=== PATIENT | female | born 1985 | race Caucasian/White ===

== ENCOUNTER → 2023-11-10 07:51 | Outpatient (REF) | payer OTHER, SELFPAY | LOC: RCS 07:51 | PROVIDERS: ATTENDING PHYSICIAN Nurse Practitioner | DX: R00.2 Palpitations (principal) | CPT/HCPCS: 93225; 93226 ==

== ENCOUNTER 2024-06-06 10:30 | Emergency (ER) | payer OTHER, SELFPAY ==
[2024-06-06 10:34] VITALS: BP 149/99
[2024-06-06 11:16] LABS: Urine Albumin Negative (Neg - Trace); Urine Bilirubin Negative (Negative); Urine Character Clear (Clear); Urine Color Yellow; Urine Glucose Negative (Negative); Urine Ketone Negative (Negative); Urine Leukocyte Negative (Negative); Urine Nitrite Negative (Negative); Urine Occult Blood 4+ (Negative); Urine Urobilinogen Negative (Neg - 1+); Urine pH 6.5 (5.0-9.0)
[2024-06-06 11:23] LABS: % Basophils 1.1 % (0-2); % Lymphocytes 38.6 % (20.5-51.1); % Monocytes 8.9 % (1.7-9.3); % Neutrophils 48.9 % (42.2-75.2); Absolute Basophils 0.1 10^3/uL (0-0.2); Absolute Eosinophils 0.1 10^3/uL (0-0.7); Absolute Monocytes 0.6 10^3/uL (0.1-0.6); Absolute Neutrophils 3.2 10^3/uL (1.4-6.5); Mean Corp Hgb Conc. 34.5 g/dL (33.0-37.0); Mean Corpuscular Hgb 29.6 pg (27.0-31.0); Mean Corpuscular Volume 85.6 fL (81.0-99.0); Mean Platelet Volume 10.8 fL (7.4-10.4); Nucleated Red Blood Cells % 0 %; Platelet Count 215 10^3/uL (130-400); Red Blood Cell Count 4.87 10^6/uL (4.20-5.40); Red Cell Dist. Width 12.8 % (11.5-14.5); White Blood Cell Count 6.6 10^3/uL (4.8-10.8)
--- NOTE | 2024-06-06 11:25 | ED.GENMED ---
History of Present Illness
General
Chief Complaint: Abdominal Pain
Time Seen by Provider: 06/06/24 11:10
History of Present Illness
History of Present Illness:
Patient is a 38-year-old woman G3, P1, history of nephrotic syndrome presenting to the emergency department pelvic cramping. Patient states that she started her period yesterday. Her cycle is regular every 29 days and last for 4 days. It is heavy
on the first day and then decreases. She does pass clots with it. She has been following with her [facility] ASS[facility]ANCE CONSULTANT. She states that yesterday she started her. However it was production repairer than normal. During the night progressed to severe cramping, back pain
and then this morning she passed a large clot. She states that the pelvic cramping and the clot is extremely unusual given the size. She has been trying to get . She is concerned that this could be an early miscarriage that she has had
to. At this time patient states that the cramping has mostly subsided and is slightly more intense than her period cramping. The bleeding is now her normal period. No fevers chills back pain currently. No urinary problems. No chest pain.
Past History
Past History
ED Past Medical History: Other (Nephrotic syndrome)
ED Past Surgical History: Other (teeth)
Patient has exhibited threatening behavior?: No
Social History
Tobacco: Non-smoker
Alcohol: None
Drug: None
Personal:
Living: with family
Employment: Employed
Phy Exam
Physical Exam
Physical Exam:
GENERAL: in no acute distress
HEENT: normocephalic, extraocular movements intact, moist oral mucosa
NECK: normal inspection
RESPIRATORY: no respiratory distress, clear to auscultation bilaterally
CARDIOVASCULAR: regular rate and rhythm
ABDOMEN/: soft, non-distended, non-tender to palpation, no rebound or guarding
EXTREMITIES: non-tender, no edema/swelling
NEUROLOGIC: awake and alert, moves all extremities
SKIN: warm
Course
Orders/Labs/Results
Orders:
Orders
06/06/24 10:48
IV Insert/Care/Rem.- Treatment PRN
06/06/24 10:49
Test Result ONCE
06/06/24 11:06
Complete Blood Count/With Diff Urgent
Comprehensive Metabolic Panel Urgent
HCG, Serum Qualitative Screen Urgent
Comment: Notify provider if positive test present
Urinalysis Reflex To Culture Urgent
Date Specimen was Collected: 06/06/24
Time Specimen was Collected: 10:48
Urine Microscopic Reflex Cult Urgent
06/06/24 11:23
Acetaminophen [Tylenol] 1,000 mg PO NOW STA
Transvaginal US [US Pelvis W Transvag Combined] Urgent
Comment:
Reason For Exam: vaginal bleeding
Abnormal Lab Results
06/06/24
11:06
MPV 10.8 H fL
(7.4-10.4)
Glucose 100 H mg/dl
(70-99)
Alkaline Phosphatase 30 L U/L
(38-126)
Ur Occult Blood Reflex 4+ A
(Negative)
Urine RBC 70-80 A /HPF
(0-2)
Urine Bacteria (Reflex) Few A
(Negative)
06/06/24 11:06
06/06/24 11:06
Vital Signs
Initial and Last Documented VS:
Initial Vital Signs
Temp Pulse Resp BP Pulse Ox
97.7 F 95 18 149/99 98
06/06/24 10:34 06/06/24 10:34 06/06/24 10:34 06/06/24 10:34 06/06/24 10:34
Last Documented Vital Signs
Temp Pulse Resp BP Pulse Ox
97.7 F 70 18 128/95 100
06/06/24 10:34 06/06/24 12:53 06/06/24 12:53 06/06/24 12:53 06/06/24 12:53
MDM/Problems Addressed
Differential Diagnosis Includes:
Patient is a 38-year-old woman presenting to the emergency department with heavy vaginal bleeding and pelvic cramping in the setting of her menstruation. Vitals are notable for normal blood pressure and exam shows a woman who is well-hydrated with
no significant conjunctival pallor and benign abdomen. Differential consists of /miscarriage/fibroids. History and exam not consistent with ovarian torsion or appendicitis or pyelonephritis. Will check blood work urine and
test. Given the nature of her. Will obtain ultrasound.
*Critical Care Note
Total Time (30-74mins, 75-104mins- exclusive of procedures): Not Applicable
Update Note
Update Note:
On reevaluation patient resting comfortably. Her pain has improved and is consistent with her period cramping. Blood work is reassuring ultrasound per my interpretation with no free fluid or signs of intrauterine . test is
negative. Per the official read there is endometrial thickening. There may also be a polyp. I did update patient of these results. She will follow-up with her [facility]AL[facility] ASSURANCE CONSULTANT for next steps. All questions answered. Strict return precautions given.
Will discharge at this time.
ED Attending Note
-
Portions of this chart may have been created with voice recognition software.� Occasional wrong word or��sound alike� substitutions may have occurred due to the inherent limitations of voice recognition software.
Discharge Plan
Departure
Patient Disposition: Home (Routine Discharge)
Date of Disposition: 06/06/24
Time of Disposition: 13:30
Patient with high blood pressure during this ER visit?: No
Discharge Problem:
Pelvic cramping
Prescriptions:
No Action
cefdinir 300 mg Capsule
300 mg PO Q12H
Gazyva 1,000 mg/40 mL Solution
IV DIRECTED
hydrocodone-acetaminophen 5-300 mg tablet
1 - 2 tab PO .q4-6 hours PRN (Reason: pain) 5 Days Qty: 10 0RF
azithromycin [Zithromax] 250 mg tablet
250 mg PO DAILY 4 Days Qty: 4 0RF
Rx Instructions:
starting tomorrow
Referrals:
Delilah Albert CRNP [Family Provider] -
Activity Restrictions/Additional Instructions:
You were seen in the Emergency Department today for pelvic cramping and increased vaginal bleeding while on your period. While you were here we performed blood work, which was reassuring. Please follow-up with your registered nurse ambulatory. The results of
your ultrasound are below.
We would like for you to follow up with your primary care physician for further evaluation. If you experience fever, worsening of your symptoms, or develop any other new or concerning symptoms, please return to the Emergency Department immediately.
Please see the attached sheet for additional information.
Results of your ultrasound:
IMPRESSION:
Endometrial thickness of 11 mm with some internal color Doppler flow, of uncertain etiology. An endometrial polyp may be present. Endometrial carcinoma would be considered less likely but is not completely excluded. Consider soft tissue sampling for
further evaluation.
Interventions
Interventions:
*Risk Screen - Suicide Last Done: 06/06/24 10:34
*Neglect/Abuse Screening Last Done: 06/06/24 10:34
AG-Vncuji-Lnypegkibp Assessment Last Done: 06/06/24 11:09
ED-Female Genitourinary Assessment Last Done: 06/06/24 11:09
Discharge Date and Time
Print Language: TELUGU
[2024-06-06 11:26] LABS: HCG, Serum Qualitative Screen Negative
[2024-06-06 11:29] LABS: ALT (SGPT) 20 U/L (0-35); AST (SGOT) 24 U/L (14-36); Albumin 4.6 g/dl (3.5-5.0); Alkaline Phosphatase 30 U/L (38-126); Blood Urea Nitrogen 11 mg/dl (7-17); Calcium 9.9 mg/dl (8.4-10.2); Carbon Dioxide 26 mmol/L (22-30); Chloride 102 mmol/L (98-107); Glucose 100 mg/dl (70-99); Potassium 4.1 mmol/L (3.5-5.1); Sodium 140 mmol/L (135-145); Total Bilirubin 0.7 mg/dl (0.2-1.3); Total Protein 6.9 g/dl (6.3-8.2); eGFR > 60.00
[2024-06-06 11:44] LABS: Urine Urothelial Cell 0-2 /LPF (FEW)
[2024-06-06 11:45] LABS: Urine Red Blood Cell 70-80 /HPF (0-2)
[2024-06-06 11:46] LABS: Urine Bacteria Few (Negative); Urine White Cell 0-2 /HPF (0-5)
[2024-06-06] MEDS: TYLENOL 1000 MG PO (12:00)
[2024-06-06 12:53] VITALS: BP 128/95
[2024-06-06 13:42] LABS: Hematocrit 41.4 % (37.0-47.0); Hemoglobin 14.4 g/dL (12.0-16.0)
== END 2024-06-06 13:37 | disposition home or self-care (01) ==
LOC: EMR 10:30
PROVIDERS: Emergency Medicine; EMERGENCY PHYSICIAN Student in an Organized Health Care Education/Training Program; FAMILY PHYSICIAN Nurse Practitioner
DX: R10.2 Pelvic and perineal pain (principal); N93.9 Abnormal uterine and vaginal bleeding, unspecified; R93.89 Abnormal findings on diagnostic imaging of other specified body structures
CPT/HCPCS: 99284; 76830; 76856; 80053; 81003; 81015; 84703; 85025

== ENCOUNTER → 2024-07-23 10:30 | Outpatient (REF) | payer OTHER, SELFPAY | LOC: HWRAD 10:30 | PROVIDERS: ATTENDING PHYSICIAN Obstetrics & Gynecology Gynecology; FAMILY PHYSICIAN Nurse Practitioner | DX: N94.6 Dysmenorrhea, unspecified (principal) | CPT/HCPCS: 76830; 76856 ==

== ENCOUNTER 2025-07-22 19:57 | Emergency (ER) | payer BC, SELFPAY ==
[2025-07-22 19:59] VITALS: BP 184/113
[2025-07-22 20:18] VITALS: BMI 34.0
[2025-07-22 20:19] VITALS: BP 129/96
[2025-07-22 20:29] LABS: Urine Character Clear (Clear)
--- NOTE | 2025-07-22 20:42 | ED.GENMED ---
History of Present Illness
General
Chief Complaint: Problems
Source: patient
Time Seen by Provider: 07/22/25 20:26
History of Present Illness
History of Present Illness:
39-year-old female presents to the emergency room complaining of elevated blood pressure. Patient is 21 weeks . 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 She has been in remission. Recently she has been
experiencing elevated blood pressures. Her blood pressure at home was in the 150s to 160s systolic. She is followed by nephrology at [facility] specifically Dr. Suarez. She has been in communication with Dr. Suarez who believes she is having a
relapse of her minimal-change disease. She had some outpatient labs today. She does have the results of her urinalysis which shows a significant mount of protein in her urine. Renal function was not back yet. Her teamcenter consultant has ordered
prednisone for her which she was going to start tomorrow. However given her elevated blood pressure it was recommended she come to the emergency room for evaluation. She denies any chest pain, shortness of breath, vaginal bleeding. She has had a
little bit of left lower quadrant cramping. This is her second . Her first was relatively uneventful resulted in a live . She is currently not taking any medication for her nephrotic syndrome. She does receive Gammagard
infusions because she also has a low B-cell count.
Past History
Past History
ED Past Medical History: Other (Nephrotic syndrome)
ED Past Surgical History: Other (teeth)
Patient has exhibited threatening behavior?: No
Social History
Tobacco: Non-smoker
Alcohol: None
Drug: None
Personal:
Living: with family
Employment: Employed
Phy Exam
Physical Exam
Physical Exam:
General: Awake, Alert, Oriented X3. No acute distress.
Vitals: unremarkable
Head: Atraumatic
Eyes: Pupils equal, EOMI
Throat: Airway intact, no exudates
Neck: Trachea midline
Lungs: Clear and equal b/l
Heart: Regular rate, no murmurs
Abd: Soft, Nontender, No pulsatile mass
Neuro: Nonfocal, brisk reflexes but no clonus
Skin: Warm, dry, no rash
Extremities: pulses equal b/l, no edema
Course
Orders/Labs/Results
Orders:
Orders
07/22/25 20:20
Urinalysis Reflex To Culture Urgent
Date Specimen was Collected: 07/22/25
Time Specimen was Collected: 20:19
Urine Microscopic Reflex Cult Urgent
07/22/25 21:14
Complete Blood Count/With Diff Urgent
Comprehensive Metabolic Panel Urgent
Magnesium Urgent
Phos [Phosphorus] Urgent
Uric Acid Urgent
Abnormal Lab Results
07/22/25 07/22/25
20:20 21:14
RBC 3.94 L 10^6/uL
(4.20-5.40)
Hgb 11.5 L g/dL
(12.0-16.0)
Hct 33.1 L %
(37.0-47.0)
MPV 10.6 H fL
(7.4-10.4)
Absolute Monos (auto) 0.7 H 10^3/uL
(0.1-0.6)
Monocytes % 9.7 H %
(1.7-9.3)
Sodium 133 L mmol/L
(135-145)
Creatinine 0.4 L mg/dL
(0.6-1.0)
Alkaline Phosphatase 29 L U/L
(38-126)
Total Protein 5.7 L g/dl
(6.3-8.2)
Albumin 3.0 L g/dl
(3.5-5.0)
Urine Bacteria (Reflex) Few A
(Negative)
Urine Albumin (Reflex) 3+ A
(Neg - Trace)
12/26/25 21:14
07/22/25 21:14
Vital Signs
Initial and Last Documented VS:
Initial Vital Signs
Temp Pulse Resp BP Pulse Ox
98.4 F 97 22 184/113 99
07/22/25 19:59 07/22/25 19:59 07/22/25 19:59 07/22/25 19:59 07/22/25 19:59
Last Documented Vital Signs
Temp Pulse Resp BP Pulse Ox
98.3 F 88 12 119/89 98
07/22/25 20:22 07/22/25 22:00 07/22/25 22:00 07/22/25 21:00 07/22/25 22:00
Information
Weeks gestation: Weeks: (21)
Location: N/A
MDM/Problems Addressed
Differential Diagnosis Includes:
Preeclampsia, hypertension in , exacerbation of minimal-change disease/nephrotic syndrome
MDM/Problems Addressed:
Patient presents with elevated blood pressures at home and proteinuria. She is 21 weeks . Her mental status is normal. Labs here show normal renal function, normal LFTs, normal platelet count. Urine does have 3+ albumin. Theoretically
it is possible that she has preeclampsia at 21 weeks but given her chronic history of nephrotic syndrome I think it is much more likely that she is having an exacerbation of this. Her blood pressures are actually normal here in the emergency room
aside from her initial blood pressure on arrival. I spoke with the patient's teamcenter consultant, Dr. Suarez, over the phone. He is already initiated treatment for exacerbation or recurrence of her nephrotic syndrome. I do not believe there is any
further intervention necessary in the emergency room at this time. Recommend OP follow-up as an outpatient. heart tones at 160 detected
*Pulse Oximetry
SaO2: 96
Oxygen Mode of Delivery: Room air
Patient hypoxic: no
*Critical Care Note
Total Time (30-74mins, 75-104mins- exclusive of procedures): Not Applicable
ED Attending Note
-
Portions of this chart may have been created with voice recognition software.� Occasional wrong word or��sound alike� substitutions may have occurred due to the inherent limitations of voice recognition software.
Discharge Plan
Departure
Patient Disposition: Home (Routine Discharge)
Date of Disposition: 07/22/25
Time of Disposition: 22:20
Patient with high blood pressure during this ER visit?: Yes
Condition: Good
Discharge Problem:
Elevated blood pressure reading, Nephrotic syndrome,
Instructions: Nephrotic syndrome, BLOOD PRESSURE
Prescriptions:
No Action
cefdinir 300 mg Capsule
300 mg PO Q12H
Gazyva 1,000 mg/40 mL Solution
IV DIRECTED
hydrocodone-acetaminophen 5-300 mg tablet
1 - 2 tab PO .q4-6 hours PRN (Reason: pain) 5 Days Qty: 10 0RF
azithromycin [Zithromax] 250 mg tablet
250 mg PO DAILY 4 Days Qty: 4 0RF
Rx Instructions:
starting tomorrow
Referrals:
Delilah Albert CRNP [Family Provider, Family Practice]
Activity Restrictions/Additional Instructions:
I have communicated with Dr. Suarez. Start the medications as he prescribed. Call your OB in the morning to make a follow-up appointment with them.
Interventions
Interventions:
*General Assessment Last Done: 07/22/25 20:00
*Neglect/Abuse Screening Last Done: 07/22/25 20:00
*ED COVID-19 Vaccine History Last Done: 07/22/25 20:00
*ED Influenza Vaccine History Last Done: 07/22/25 20:00
[facility] Risk Assessment Tool Last Done: 07/22/25 21:30
*Risk Screen - Suicide (C-SSRS) Last Done: 07/22/25 20:00
*Nursing Disposition Last Done: 07/22/25 22:28
ED-Female Genitourinary Assessment Last Done: 07/22/25 22:15
Discharge Date and Time
Discharge Date/Time: 07/22/25 22:29
Print Language: SCOTTISH
[2025-07-22 20:56] LABS: Urine Red Blood Cell 0-2 /HPF (0-2); Urine Squamous Cell >30 /LPF (Few); Urine White Cell 0-2 /HPF (0-5)
[2025-07-22 21:00] VITALS: BP 119/89
[2025-07-22 21:23] LABS: Hematocrit 33.1 % (37.0-47.0); Hemoglobin 11.5 g/dL (12.0-16.0); Mean Corp Hgb Conc. 34.7 g/dL (33.0-37.0); Mean Corpuscular Volume 84.0 fL (81.0-99.0); Nucleated Red Blood Cells % 0 %; Platelet Count 189 10^3/uL (130-400); Red Cell Dist. Width 13.3 % (11.5-14.5)
[2025-07-22 21:41] LABS: ALT (SGPT) 17 U/L (0-35); AST (SGOT) 27 U/L (14-36); Albumin 3.0 g/dl (3.5-5.0); Alkaline Phosphatase 29 U/L (38-126); Blood Urea Nitrogen 10 mg/dl (7-17); Calcium 8.9 mg/dl (8.4-10.2); Carbon Dioxide 23 mmol/L (22-30); Chloride 106 mmol/L (98-107); Estimated Creatinine Clearance > 125 ml/min; Glucose 86 mg/dl (70-99); Magnesium 1.7 mg/dl (1.6-2.3); Potassium 3.5 mmol/L (3.5-5.1); Sodium 133 mmol/L (135-145); Total Protein 5.7 g/dl (6.3-8.2); Uric Acid 3.3 mg/dl (2.5-6.2); eGFR > 60.00
== END 2025-07-22 22:29 | disposition home or self-care (01) ==
LOC: EMR 19:57
PROVIDERS: EMERGENCY PHYSICIAN Emergency Medicine; FAMILY PHYSICIAN Nurse Practitioner
DX: O26.832 Pregnancy related renal disease, second trimester (principal); O26.892 Other specified pregnancy related conditions, second trimester; N04.9 Nephrotic syndrome with unspecified morphologic changes; Z3A.21 21 weeks gestation of pregnancy; R10.32 Left lower quadrant pain; R03.0 Elevated blood-pressure reading, without diagnosis of hypertension; Z87.441 Personal history of nephrotic syndrome; Z88.1 Allergy status to other antibiotic agents; Z88.2 Allergy status to sulfonamides; Z88.8 Allergy status to other drugs, medicaments and biological substances
CPT/HCPCS: 99283; 80053; 81003; 81015; 83735; 84100; 84550; 85025